=== PATIENT | male | born 1965 | race Caucasian/White ===

== ENCOUNTER 2019-01-11 21:07 | Emergency (ER) | payer OTHER ==
--- NOTE | 2019-01-11 22:09 | EDM.PDOC ---
ED HPI GENERAL MEDICAL PROBLEM - General Chief Complaint: Upper Extremity Injury/Pain Stated Complaint: LEFT ARM WILL NOT MOVE Time Seen by Provider: 01/11/19 21:30 Source of Information: Reports: Patient History Limitations: Reports: No Limitations - History of Present Illness INITIAL COMMENTS - FREE TEXT/NARRATIVE: Pt claims that he has been having pain in his left shoulder which started on Saturday and has progressively got worse. He did go to Physical therapy on and had pain, so has stopped therapy for now. He claim s he has noticed swelling of the joint and has not been able to move his left shoulder. Also his whole arm hurts. No trauma or injury. No fever or chills. Pt has been doing physical therapy on his joint rates since August after having his left shoulder rotator cuff repair, by Dr. Mendez in July of 2018.Still on therapy. Also patient has history of gout and take allopurinol. Onset: Today Location: Reports: Lower Extremity, Left Quality: Reports: Ache Severity: Moderate Improves with: Reports: Immobilization Worsens with: Reports: None Associated Symptoms: Denies: Confusion, Chest Pain, Cough, Diaphoresis, Fever/ Chills, Headaches, Nausea/Vomiting, Rash, Seizure, Shortness of Breath, Syncope , Weakness left shoulder Pain Score (Numeric/FACES): 9 - Related Data Allergies Allergy/AdvReac Type Severity Reaction Status Date / Time jaswinder Allergy Blurred Verified 01/11/19 21:27 Vision Home Meds: Home Meds Allopurinol [Zyloprim] 100 mg PO DAILY 01/11/19 [History] Lisinopril 10 mg PO DAILY 01/11/19 [History] Past Medical History HEENT History: Reports: Impaired Vision Musculoskeletal History: Reports: Osteoarthritis - Past Surgical History Musculoskeletal Surgical History: Reports: Shoulder Surgery Other Musculoskeletal Surgeries/Procedures:: Right shoulder RTC repair 2014. Left shoulder RTC repair 2018 Review of Systems - Review of Systems Review Of Systems: See Below Constitutional: Denies: Chills, Fever Eyes: Denies: Drainage Ears: Denies: Pain Nose: Denies: Congestion, Clear Discharge Mouth/Throat: Denies: Bleeding Respiratory: Denies: Shortness of Breath, Cough, Sputum Cardiovascular: Denies: Chest Pain, Syncope GI/Abdominal: Denies: Diarrhea, Nausea, Vomiting Musculoskeletal: Reports: Shoulder Pain, Joint Pain, Joint Swelling Skin: Denies: Bruising, Pruritis, Rash Neurological: Denies: Confusion, Dizziness, Headache, Numbness, Tingling ED EXAM, GENERAL - Physical Exam Exam: See Below Exam Limited By: No Limitations General Appearance: Alert, WD/WN, Moderate Distress Eye Exam: Bilateral Eye: EOMI, PERRL Ears: Normal External Exam, Normal Canal, Hearing Grossly Normal, Normal TMs Ear Exam: Bilateral Ear: Auricle Normal, Canal Normal, TM normal Nose: Normal Inspection, Normal Mucosa, No Blood Throat/Mouth: Normal Inspection, Normal Lips, Normal Teeth, Normal Gums, Normal Oropharynx, Normal Voice, No Airway Compromise Head: Atraumatic, Normocephalic Neck: Normal Inspection, Supple, Non-Tender, Full Range of Motion Respiratory/Chest: No Respiratory Distress, Lungs Clear, Normal Breath Sounds, No Accessory Muscle Use, Chest Non-Tender Cardiovascular: Normal Peripheral Pulses, Regular Rate, Rhythm, No Edema, No Gallop, No JVD, No Murmur, No Rub Extremities: Other (Left shoulder: The left shoulder hand below the right on level.There is a scar over the tip of the shoulder about 4 cm in length. There is swelling around the joint noted. Joint is warm to touch. Pt is tender over the anterior aspect of the shoulder. Absent ROM of the arm. Also painful flexion of the shoulder. ) Neurological: Alert, Oriented Course - Vital Signs Text/Narrative:: Pt has had a progressive worsening of pain in his left shoulder from Tuesdays to now. Also he has developed swelling of the shoulder. He has very limited ROM of the arm and also flexion of forearm is very painful. This might be shoulder inflammation with swelling asso with gout, as patient has history of gout.. Chance of Infective arthritis is low, as the pain has been present for about 5 days now. He claims pain has not been different from yesterday. His CBC shows white count of of 12.5K . His BMP is normal. His uric acid is normal ( but uric acid can be normal when there is acute attack).Left shoulder X -ray shows low riding humoral head.I am hesitant to aspirate his joint considering he has had surgery in the joint. Pt did receive Toradol 60mg Im. Advised to alternate [id number] with motrin 800mg every 4 hrs for next 24 hrs. Cold compresses tot he shoulder joint. Arm sling to support the extremity.I have advised patient to followup with Dr. Mendez tomorrow morning. Last Recorded V/S: Last Vital Signs Temp 98.8 F 01/11/19 21:13 Pulse 98 01/11/19 21:13 Resp 20 01/11/19 21:13 BP 154/100 H 01/11/19 21:13 Pulse Ox 99 01/11/19 21:13 - Orders/Labs/Meds Orders: Active Orders 24 hr Category Date Time Status Shoulder Comp Lt [CR] Stat Exams 01/11/19 21:43 Taken BASIC METABOLIC PANEL,BMP [CHEM] Stat Lab 01/11/19 21:40 Received ESR [SEDIMENTATION RATE MANUAL] [HEME] Stat Lab 01/11/19 21:40 Received URIC ACID [CHEM] Stat Lab 01/11/19 21:40 Received Labs: Laboratory Tests 01/11/19 Range/Units 21:40 WBC 12.2 H D (4.0-11.0) K/uL RBC 4.74 (4.50-6.50) M/uL Hgb 14.1 (13.0-18.0) g/dL Hct 41.4 (40.0-54.0) % MCV 87 (76-96) fL MCH 29.7 (27.0-32.0) pg MCHC 34.1 (31.0-35.0) g/dL RDW 12.8 (11.0-16.0) % Plt Count 199 (150-400) K/uL MPV 11.5 H (6.0-10.0) fL Neut % (Auto) 75.6 H (45.0-70.0) % Lymph % (Auto) 12.1 L (20.0-40.0) % [place] % (Auto) 11.4 H (3.0-10.0) % Eos % (Auto) 0.7 L (1.0-5.0) % Baso % (Auto) 0.2 (0.0-0.5) % Neut # (Auto) 9.19 H (2.00-7.50) K/uL Lymph # (Auto) 1.47 L (1.50-4.00) K/uL [place] # (Auto) 1.38 H (0.20-0.80) K/uL Eos # (Auto) 0.08 (0.04-0.40) K/uL Baso # (Auto) 0.03 (0.02-0.10) K/uL Departure - Departure Time of Disposition: 22:30 Disposition: Home, Self-Care 01 Condition: Fair Clinical Impression: Left shoulder pain - Discharge Information *PRESCRIPTION DRUG MONITORING PROGRAM REVIEWED*: Not Applicable *COPY OF PRESCRIPTION DRUG MONITORING REPORT IN PATIENT NANCY: Not Applicable Forms: ED Department Discharge Additional Instructions: Call Dr. Mendez office tomorrow and talk to them about what is going on with your arm. In the future when you have a flare up of gout you need to stop taking the Allopurinal and be seen in the clinic when you can get in. Ibuprofen can be taken 800mg every 8 hours Tylenol 1000mg every 8 hours Where the sling until you have followed up with your surgeon - Problem List Review Problem List Initiated/Reviewed/Updated: Yes - My Orders Last 24 Hours: My Active Orders 01/11/19 21:40 BASIC METABOLIC PANEL,BMP [CHEM] Stat ESR [SEDIMENTATION RATE MANUAL] [HEME] Stat URIC ACID [CHEM] Stat 01/11/19 21:43 Shoulder Comp Lt [CR] Stat - Assessment/Plan Last 24 Hours: My Active Orders 01/11/19 21:40 BASIC METABOLIC PANEL,BMP [CHEM] Stat ESR [SEDIMENTATION RATE MANUAL] [HEME] Stat URIC ACID [CHEM] Stat 01/11/19 21:43 Shoulder Comp Lt [CR] Stat Assessment:: left shoulder pain with effusion Plan: Pt has had a progressive worsening of pain in his left shoulder from Tuesdays to now. Also he has developed swelling of the shoulder. He has very limited ROM of the arm and also flexion of forearm is very painful. This might be shoulder inflammation with swelling asso with gout, as patient has history of gout.. Chance of Infective arthritis is low, as the pain has been present for about 5 days now. He claims pain has not been different from yesterday. His CBC shows white count of of 12.5K . His BMP is normal. His uric acid is normal ( but uric acid can be normal when there is acute attack).I am hesitant to aspirate his joint considering he has had surgery in the joint. Pt did receive Toradol 60mg Im. Advised to alternate [id number] with motrin 800mg every 4 hrs for next 24 hrs. Cold compresses tot he shoulder joint. Arm sling to support the extremity.I have advised patient to followup with Dr. Mendez tomorrow morning.
[2019-01-11] MEDS: Ketorolac 60 MG/2 ML SDV IM ONE (22:15)
--- NOTE | 2019-01-12 05:17 | CR ---
DATE OF SERVICE: 01/11/19 CLINICAL DATA: Pain and swelling. LEFT SHOULDER: Comparison is made to a prior exam dated 04/07/18. There are osteoarthritic changes of the AC joint. There are minimal osteoarthritic changes of the glenohumeral joint. No acute fracture or dislocation. No focal lytic or blastic bone lesions. [id number] [facility]
== END 2019-01-11 22:28 | disposition home or self-care (01) ==
LOC: LB.ED 21:07
DX: M25.412 Effusion, left shoulder (principal); Z79.899 Other long term (current) drug therapy; Z91.09 Other allergy status, other than to drugs and biological substances
CPT/HCPCS: 36415; 73030-LT; 80048; 84550; 85025; 85651; 96372; 99283-25; J1885